=== PATIENT | female | born 1940 | race Caucasian/White ===

== ENCOUNTER 2019-11-08 15:10 | Inpatient (IN) ==
[2019-11-08] MEDS ORDERED: Ondansetron 4 MG/2 ML VIAL IVP PRN (19:53)
[2019-11-08] MEDS ORDERED: Naloxone 0.4 MG/ML INJ IVP PRN (19:53)
[2019-11-08] MEDS ORDERED: Perflutren Lipid Microsphere 1.3 ML in 0.9 % Sodium Chloride 8.7 ML IVP PRN (20:02)
[2019-11-08] MEDS ORDERED: *HR* Dextrose 50 % in Water (Vial) 50 ML VIAL IVP PRN (23:52)
[2019-11-08] MEDS ORDERED: D5% in Water 1,000 ML IVC PRN (23:52)
[2019-11-08] MEDS ORDERED: Dextrose Gel 15 GM/37.5 ML TUBE PO PRN ×2 (23:52)
[2019-11-09 03:26] LABS: Prothrombin Time 11.6 Seconds (9.4-12.1)
[2019-11-09 03:35] LABS: Basophils # 0.1 K/mcL (0.0-0.2); Basophils % 0.7 %; Eosinophils # 0.2 K/mcL (0.0-0.6); Eosinophils % 2.9 %; Hemoglobin 11.2 g/dL (11.5-15.4); Immature Granulocytes % 0.4 % (0-4); Lymphocytes # 2.2 K/mcL (0.6-4.6); Lymphocytes % 26.9 %; Mean Corpuscular HGB Conc 32.9 g/dL (31.6-35.5); Mean Corpuscular Hemoglobin 30.4 pg (28.0-33.3); Mean Corpuscular Volume 92.4 fL (83.0-100.0); Mean Platelet Volume 11.1 fL (9.4-12.4); Monocytes % 12.6 %; Neutrophils # 4.5 K/mcL (1.6-8.9); Platelet Count 196 K/mcL (140-400); Red Blood Count 3.68 M/mcL (3.82-4.97); Red Cell Distribution Width 12.8 % (11.5-14.5); Segmented Neutrophils % 56.5 %
[2019-11-09 03:51] LABS: Albumin 3.7 g/dL (3.5-5.7); Albumin/Globulin Ratio 1.3 (1.1-2.2); Bilirubin,Total 0.4 mg/dL (0.3-1.0); Calcium 9.1 mg/dL (8.6-10.3); Chol/HDL Ratio 8.3 (0-4.9); Globulin 2.9 g/dL (2.4-3.5); Total Protein 6.6 g/dL (6.4-8.9)
[2019-11-09] MEDS ORDERED: *HR* Enoxaparin 40 MG/0.4 ML SYRINGE SQ SCH (06:00)
[2019-11-09] MEDS: Insulin LISPRO 300 UNITS/3 ML VIAL SQ SCH ×3 (07:59→18:51)
[2019-11-09] MEDS: Aspirin Enteric Coated 81 MG Tablet PO SCH (07:59)
[2019-11-09 08:42] LABS: Estimated Average Glucose 183 mg/dl
[2019-11-09] MEDS: Insulin DETEMIR 100 UNIT/ML X5UNITS SQ SCH (19:51)
[2019-11-09] MEDS ORDERED: Insulin LISPRO 300 UNITS/3 ML VIAL SQ SCH (21:00)
[2019-11-09] MEDS ORDERED: INSULIN GLARGINE SQ SCH (21:00)
[2019-11-10 02:15] LABS: Calcium 9.4 mg/dL (8.6-10.3); Potassium 4.2 mEq/L (3.5-5.1)
[2019-11-10 07:16] VITALS: BP 125/76
[2019-11-10] MEDS: Insulin LISPRO 300 UNITS/3 ML VIAL SQ SCH (08:02)
[2019-11-10] MEDS: Insulin DETEMIR 100 UNIT/ML X5UNITS SQ SCH (08:27)
[2019-11-10] MEDS: Aspirin Enteric Coated 81 MG Tablet PO SCH (08:27)
== END 2019-11-10 11:21 | disposition home or self-care (01) | DRG 66 ==
LOC: 3BNU
PROVIDERS: ADMIT Family Medicine; ATTEND Family Medicine